=== PATIENT | female | born 1980 | race Caucasian/White ===

== ENCOUNTER → 2019-02-13 | Outpatient (CLI) | payer OTHER ==
--- NOTE | 2019-02-13 09:30 | REP ---
Clinical: Dating and viability. Technique: Transabdominal and transvaginal first trimester obstetrical ultrasound with color Doppler evaluation. Findings: Single live early intrauterine . Gestational sac with yolk sac and pole identified. CRL of 3 mm corresponds to 5 weeks 6 days gestational age with estimated date of delivery 10/10/2019. heart rate equals 118 beats per minute. No gross abnormalities are identified. 2.7 cm left corpus luteal cyst noted. Impression: Single live early intrauterine at 5-week 6 days gestational age. Complete anatomical assessment should be performed at 19-20 weeks. Electronically Signed by Braulio Edwards MD 02/13/2019 09:21 A
[2019-02-13 09:51] LABS: THYROID STIMULATING HORMONE 1.43 uIU/ML (0.358-3.740)
[2019-02-13 10:12] LABS: PROGESTERONE 21.38 NG/ML
[2019-02-13 10:14] LABS: ESTRADIOL 474.3 PG/ML
== END ==
LOC: M RAD 08:17
PROVIDERS: ATTEND Obstetrics & Gynecology Reproductive Endocrinology
DX: E28.9 Ovarian dysfunction, unspecified (principal); Z3A.01 Less than 8 weeks gestation of pregnancy

== ENCOUNTER → 2019-02-20 | Outpatient (CLI) | payer OTHER ==
--- NOTE | 2019-02-20 07:57 | REPVR ---
PROCEDURE INFORMATION: Exam: US , Transvaginal and US Duplex Artery or Vein, Ovaries, Limited Exam date and time: 02/20/2019 7:23 AM Clinical history: 38 years old, female; Lmp or gestational age (in weeks): 7w 0d; Other: Dating; ; Additional info: Gestational dating and viability TECHNIQUE: Imaging protocol: Real-time transvaginal obstetrical ultrasound of the maternal pelvis and a first trimester with image documentation. Transvaginal imaging was used for better evaluation of the fetus and adnexa. Real-time duplex ultrasound scan of the arterial or venous flow of the ovaries with B-mode, color Doppler flow and spectral waveform analysis, Limited Duplex. COMPARISON: TRANSVAGINAL US 02/13/2019 8:55 AM FINDINGS: GESTATION: Gestation: Intrauterine gestational sac is seen. Yolk sac is seen. Heart rate: heart rate is detected at 141 beats per minutes. Placenta: Small subchorionic hemorrhage is seen measuring 11.7 x 12.2 x 6.7 mm. BIOMETRY: Katie-Rump length: pole is detected with crown-rump length of 9.9 mm corresponding to 7 weeks and 0 day gestation. MATERNAL: Uterus: The uterus measures 10.2 x 6.9 x 5.7 cm. Right adnexa: The right ovary measures 2.9 x 1.4 cm with arterial blood flow and peak systolic velocity of 14.2 cm/s and resistive index of 0.49. Left adnexa: The left ovary measures 3.6 x 2.7 x 2.9 cm containing a 2.2 x 1.5 x 1.6 cm likely corpus luteal cyst. Arterial blood flow seen to the left ovary with peak systolic velocity of 13.8 cm/s and resistive index of 0.53. IMPRESSION: 1. Single live intrauterine gestation corresponding to 7 weeks gestation by CRL. 2. 2.2 cm left ovarian corpus luteal cyst. 3. No sonographic evidence of torsion. Electronically signed by: Duncan Mills On 02/20/2019 07:57:02 AM
[2019-02-20 08:47] LABS: THYROID STIMULATING HORMONE 1.19 uIU/ML (0.358-3.740)
[2019-02-20 12:23] LABS: ESTRADIOL 739.5 PG/ML; PROGESTERONE 20.47 NG/ML
== END ==
LOC: M RAD 06:45
PROVIDERS: ATTEND Obstetrics & Gynecology Reproductive Endocrinology
DX: E28.9 Ovarian dysfunction, unspecified (principal); Z3A.01 Less than 8 weeks gestation of pregnancy; N83.12 Corpus luteum cyst of left ovary

== ENCOUNTER 2019-10-08 20:30 | Inpatient (IN) | payer OTHER ==
[~2019-10-08] VITALS: Ht 160 cm; Wt 78.3 kg
[2019-10-08 20:56] VITALS: BP 128/81
[2019-10-08] MEDS ORDERED: PRENTAB9 PO (21:17)
[2019-10-08] MEDS ORDERED: PROBCAP14 PO (21:17)
--- NOTE | 2019-10-08 21:28 | HPEPDOC ---
Obstetrical History & Physical General Date of Admission Oct 08, 2019 at 20:30 History of Present Illness patient is a 38 yo @39+6wks gestation presents for social induction. disha erickson ctx/lof/vb. +FM. 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: No pertinent history Past Medical History Medical History denies Surgical History: Appendectomy (laparoscopic), Bilateral bunionectomy Family History Significant Family History: No pertinent family hx Social History Marital Status: Family situation: Spouse/partner home * Smoker: non-smoker Alcohol: Denies Drugs: denies Imunizations Tdap status: current Influenza Status: current Allergies Coded Allergies: Penicillins (Verified Allergy, Severe, ANAPHYLACTIC, 10/08/19) ANAPHYLACTIC hyoscyamine (Verified Allergy, Severe, HIVES & THROAT SWELLING, 10/08/19) HIVES & THROAD SWELLING methenamine (Verified Allergy, Severe, HIVES & THROAT SWELLING, 10/08/19) HIVES & THROAT SWELLING methylene blue (Verified Allergy, Severe, HIVES & THROAT SWELLING, 10/08/19) HIVES & THROAD SWELLING salicylates (Verified Allergy, Severe, HIVES & THROAT SWELLING, 10/08/19) HIVES & THROAD SWELLING sodium phosphate (Verified Allergy, Severe, HIVES & THROAT SWELLING, 10/08/19) HIVES & THROAD SWELLING latex (Verified Allergy, Unknown, 10/08/19) SWELLING/BLISTERS Medications Scheduled Lactobacillus Acidophilus (Probiotic) 1 Each Capsule, 1 CAP PO DAILY No.137/Iron/Folic Acd ( Vitamin Tablet) 1 Each Tablet, 1 TAB PO DAILY Physical Examination Physical Examination GENERAL: Alert and oriented times three. BREAST: . ABDOMEN: Gravid and non-tender to touch. FETUS: Is vertex (VTX) by sterile vaginal examination (SVE), fetus is vertex (VTX) by Garcia. HEART RATE: Regular rate and rhythm. LUNGS: Clear to auscultation (CTA). EXTREMITIES: No edema/erythema/tenderness EFW: 3600gm Laboratory Data 24H LABS Laboratory Tests 2 10/08/19 20:52: Serology Scanned Report Hepatitis B Testing Pertinent Laboratoy Data Blood Type: B+ RBC Antibody Screen: Negative HIV: Negative Hepatitis B: Negative Rapid Plasma Reagin: Nonreactive Rubella: Immune Chlamydia/Gonorrhea: Negative Group B Streptococcus: Negative Glucose Tolerance Test: 135 (64/167/157/109) Anatomy Ultrasound Placenta Location: Posterior Normal Anatomy: Yes Placenta Previa: No Vaginal Examination Dilation: 3 cm Effacement: 70% Station: -2 Cervical Consistency: Medium Cervical Position: Middle Presentation: Cephalic presentation Assessment Heart Rate (FHR): 135 Variability: Moderate Accelerations: Positive Decelerations: None Tocometer Contractions: No Assessment/Plan Assessment patient is a 38 yo @ 39+6wks gestation admitted for IOL. discussed pitocin/arom for induction of labor. discussed external and internal monitors as needed. Risk of emergent section, infection requiring antibiotics and extended hospital stay, bleeding requiring blood transfusion, operative vaginal delivery with forceps or vacuum and associated risks, episiotomy discussed with patient. DO christianne Plan Admit and orient. Speech Language Pathologist Prn and consent. Diet: CLEAR Group B Streptococcus (GBS) [negative]. Counseled on Pitocin and induction of labor (IOL). pelvis proven MISSY DERAS DO Oct 08, 2019 21:27
[2019-10-08] MEDS ORDERED: OXYTOCIN DRIP 30 UNITS in IV 1 EA IV SCH (21:30)
[2019-10-08 21:36] LABS: HEMATOCRIT 38.7 % (36.0-47.0); MEAN CORPUSCULAR HGB CONC 33.6 g/dl (32.0-36.5); MEAN CORPUSCULAR VOLUME 89.4 fl (80.0-96.0); PLATELET COUNT, AUTOMATED 212 10^3/uL (150-450); RED BLOOD COUNT 4.33 10^6/uL (4.00-5.40); WHITE BLOOD COUNT 8.6 10^3/uL (4.0-10.0)
[2019-10-08 21:55] VITALS: BP 113/72
[2019-10-08] MEDS: LR 1,000 ML IV SCH (21:56)
[2019-10-08 22:36] VITALS: BP 114/75
[2019-10-08 23:28] VITALS: BP 91/52
[2019-10-08 23:56] VITALS: BP 100/70
[2019-10-09] VITALS (14 sets, daily range): BP systolic 98–131; BP diastolic 59–83
[2019-10-09] MEDS: BUTORPHANOL 2 MG/ML INJ (J0595) IV ONE ×2 (02:45→02:54)
[2019-10-09] MEDS: PROMETHAZINE INJ 25 MG/ML VIAL (J2550) IV ONE ×2 (02:45→02:53)
[2019-10-09] MEDS: OXYTOCIN DRIP 30 UNITS in IV 1 EA IV SCH ×2 (03:29→04:57)
[2019-10-09] MEDS ORDERED: RHOGAM 300 MCG (1500 IU) INJ (J2790) IM SCH (03:30)
[2019-10-09] MEDS ORDERED: MEASLES,MUMPS,RUBELLA VACCINE INJ (MMR-II) (90707) SC SCH (03:30)
[2019-10-09] MEDS ORDERED: DIBUCAINE 1% OINTMENT 30GM TOP PRN (03:30)
--- NOTE | 2019-10-09 03:42 | DNPDOC ---
[facility] Delivery Note Delivery Note DATE OF DELIVERY: 10/09/2019 PREDELIVERY DIAGNOSIS: 40+0/7 weeks' gestation and labor. POST DELIVERY DIAGNOSIS: Delivered. PROCEDURE: Spontaneous vaginal delivery HEAD GRINDER: Dr. Karlie Luther DO ANESTHESIA: none ESTIMATED BLOOD LOSS: 200 mL. FINDINGS: 3720gm male , Score 2/4/9, nuchal cord times x 1, tight. DELIVERY SUMMARY: With good maternal effort, baby delivered OA, restituted LOT. Tight nuchal cord, not able to be reduced. Anterior shoulder stuck behind pubic symphysis. Indira, and forward rotation of anterior shoulder, delivered. Posterior shoulder delivered. Baby delivered through tight nuchal cord. Baby placed on maternal abdomen. Cord clamped x 2 and cut. Baby brought to warmer for assessment. Cord gas collected. Placenta delivered spontaneously. Pitocin started. Fundus massaged firm. Inspection revealed midline abrasion, hemostatic, no requiring repair. DO AUGUSTA Luther LUAT N. DO Oct 09, 2019 03:42
[2019-10-09 03:45] LABS: CORD GAS ABE A -6.8; CORD GAS ABE V -2.6; CORD GAS HCO3 A 21.8 MEQ/L; CORD GAS HCO3 V 22.6 MEQ/L; CORD GAS O2 SAT A 51.2 %; CORD GAS O2 SAT V 83.4 %; CORD GAS PCO2 A 55.9 mmHg; CORD GAS PCO2 V 40.7 mmHg; CORD GAS PH A 7.208 UNITS; CORD GAS PH V 7.362 UNITS; CORD GAS PO2 A 25.5 mmHg; CORD GAS PO2 V 38.7 mmHg; CORD GAS TCO2 A 23.5 MEQ/L; CORD GAS TCO2 V 23.8 MEQ/L
[2019-10-09] MEDS ORDERED: METHYLERGONOVINE MALEATE 0.2 MG/ML VIAL (J2210) As Ordered ONE (04:38)
[2019-10-09] MEDS ORDERED: METHYLERGONOVINE MALEATE 0.2 MG/ML VIAL (J2210) IM STA (04:44)
[2019-10-09] MEDS ORDERED: OXYTOCIN INJ 10 UNITS/ML VIAL (J2590) IV STA (04:44)
[2019-10-09] MEDS ORDERED: OXYTOCIN DRIP 30 UNITS in IV 1 EA IV SCH (05:00)
[2019-10-09] MEDS: IBUPROFEN 800 MG TAB PO PRN ×3 (05:30→23:35)
[2019-10-09] MEDS: LR 1,000 ML IV SCH (07:25)
[2019-10-09] MEDS: PRENATAL VITAMINS CHEWABLE TABLET PO SCH (09:35)
[2019-10-09] MEDS: ACETAMINOPHEN TAB 650MG DOSE (2X325MG) PO PRN ×2 (09:35→19:55)
[2019-10-10] MEDS: ACETAMINOPHEN TAB 650MG DOSE (2X325MG) PO PRN (02:01)
[2019-10-10 05:51] VITALS: BP 103/72
[2019-10-10] MEDS: IBUPROFEN 800 MG TAB PO PRN (07:40)
[2019-10-10] MEDS: PRENATAL VITAMINS CHEWABLE TABLET PO SCH (07:40)
[2019-10-10] MEDS ORDERED: ACET1TAB55 PO (11:52)
--- NOTE | 2019-10-10 11:55 | OBDS ---
[facility] Obstetrical Discharge Sum. Obstetrical Discharge Summary Date: Oct 10, 2019 Time: 11:53 : 3 Term: 3 Pre-term: 0 Abortions: 0 Livin VDRL: Non-Reactive Rh: Positive Rubella: Immune Sex: Male Weight: grams (3720) A/P, Post Course List any complications Admission diagnosis: gravid @ 39+6wks gestation Discharge diagnosis: Condition at Discharge: stable Discharge Instructions: Home Activity: as tolerated Diet: regular Medications: filled at [facility] Follow-up: 6-8wks Hospital course: Patient admitted at 39+6wks for social induction. Patient progressed to have a spontaneous vaginal delivery at 40+0wks on 09OCT2019. Delivery complicated by 40 seconds of right shoulder dystocia, resolved with Indira and forward rotation of anterior shoulder. course routine and uncomplicated. MISSY DERSA DO Oct 09, 2019 03:47 MR MONTALVO CNM Oct 10, 2019 11:55
--- NOTE | 2019-10-10 11:58 | IPNPDOC ---
Progress Note Date of Service: Oct 10, 2019 Day#: 1 Progress Note SUBJECT: Ambar is a 38yo G3 now P3003 s/p complicated by 40 second shoul cristine dystocia at 40+0wks. Doing well, PP Day #1.She has been ambulating, voiding spontaneously without issue and tolerating regular diet. Breast feeding without issue. Reports lochia is Light. OBJECTIVE: VITAL SIGNS: Within normal limits, afebrile. Alert and oriented times three. Abdomen: Fundus firm at U. Soft, NTTP. Minimal lochia. ASSESSMENT: PP Day #1, normal involution, stable and progressing well. exclusively. No s/sx of infection. PLAN: 1. Discharge to home today. 2. Tylenol for pain. 3. Encourage frequent breast feeding and ambulation. 4. Routine PP visit in 6 weeks in clinic. 5. Discussed return precautions at length. VS, I&O, 24H, Fishbone Vital Signs/I&O Vital Signs Date Time Temp Pulse Resp B/P (MAP) Pulse Ox O2 Delivery O2 Flow Rate FiO2 10/10/19 05:51 97.1 82 18 103/72 (82) 98 Room Air l I&O- Last 24 Hours up to 6 AM 10/10/19 06:00 Intake Total 575 ml Output Total 275 ml Balance 300 ml RM MONTALVO CNM Oct 10, 2019 11:58
== END 2019-10-10 13:50 | disposition home or self-care (01) | DRG 807 ==
LOC: M LDI 20:30 → M OBS 10-09 05:37
PROVIDERS: ADMIT Obstetrics & Gynecology; ATTEND Obstetrics & Gynecology
PROC: 3E033VJ Introduction of Other Hormone into Peripheral Vein, Percutaneous Approach (ICD-10-PCS; 2019-10-08)
PROC: 10E0XZZ Delivery of Products of Conception, External Approach (ICD-10-PCS; principal; 2019-10-09)
DX: O69.1XX0 Labor and delivery complicated by cord around neck, with compression, not applicable or unspecified (principal); Z37.0 Single live birth; Z3A.39 39 weeks gestation of pregnancy; O66.0 Obstructed labor due to shoulder dystocia

== ENCOUNTER → 2020-02-21 | Outpatient (CLI) | payer OTHER ==
[~2020-02-21] MED LIST: ACET1TAB55 PO; PRENTAB9 PO; PROBCAP14 PO
--- NOTE | 2020-02-21 13:53 | REP ---
INDICATION: LEFT BREAST U/S/TENDER LUMP. COMPARISON: None TECHNIQUE: Real-time sonographic evaluation of left breast performed. FINDINGS: At the site of the palpable lump left breast 3 o'clock, approximately 4 cm from the nipple, is a hypoechoic nodule. With Doppler evaluation there is no internal hyperemia. It measures 1.7 cm in diameter. IMPRESSION: BIRADS/ACR category 3 probably benign. Hypoechoic nodule at the site of the palpable lump 3 o'clock left breast 1.7 cm in diameter. Given the fact that the patient is 4 months and is currently breast feeding, this most likely represents a complex cyst, lactating adenoma or fibroadenoma. Recommend follow-up ultrasound in 6 months. RECOMMENDATION: Recommend follow-up ultrasound in 6 months. Recommend clinical correlation. If the nodule is deemed clinically suspicious or if the patient desires a biopsy, ultrasound-guided sampling could be performed. <Electronically signed by Chuck Carreon > 02/21/20 [id number]
== END ==
LOC: M WHC 11:04
PROVIDERS: ATTEND Nurse Practitioner Women's Health
DX: N63.20 Unspecified lump in the left breast, unspecified quadrant (principal)